=== PATIENT | female | born 2000 | race Caucasian/White ===

== ENCOUNTER 2025-04-24 22:14 | Emergency (ER) | payer OTHER, SELFPAY ==
--- NOTE | ~2025-04-24 | US_ITS ---
US OB <=14 wk fetus w TV Ordering provider: Lon Beckford History: . r/o ectopic . Comparison: None. Technique: Transabdominal and endovaginal ultrasound of the pelvis (Doppler ultrasound interrogation techniques used as needed for this exam.) FINDINGS: CERVIX: Normal. UTERUS: Measures 9.7x 5.6x 6.9 cm in length which is within normal limits and is anteverted. No myom etrial masses. ENDOMETRIUM: Thickened endometrium is noted with no pole or gestational sac. CUL DE SAC: Trace free fluid. RIGHT OVARY: Not visualized. LEFT OVARY: Not visualized. ADNEXA: Normal. No mass. Thickened wall of the urinary bladder. IMPRESSION: Thickened endometrium with no intrauterine gestational sac. No definite adnexal masses seen. Trace of free fluid. Early is possible. Ectopic cannot be excluded. Clinical correlation and follow-up with correlation with the beta units is advised. Reviewed, dictated and finalized at location A. IMPRESSION: Thickened endometrium with no intrauterine gestational sac. No definite adnexal masses seen. Trace of free fluid. Early is possible. Ectopic cannot be excluded. Clinical cor relation and follow-up with correlation with the beta units is advised.
[2025-04-24 22:16] VITALS: BP 115/81; PULSE 78; RESP 18; TEMP 37.3; O2SAT 100
[2025-04-24 22:33] LABS: Basophils Absolute Auto 0.1 K/mm3 (0.0-0.1); Basophils Percent Auto 0.7 % (0.2-1.2); Eosinophils Absolute Auto 0.2 K/mm3 (0-0.3); Hemoglobin 12.6 g/dL (12.0-15.0); Immature Granulocyte Absolute 0.02 K/mm3 (0.00-0.031); Immature Granulocyte Percent A 0.2 % (0-0.5); Lymphocytes Absolute Auto 2.27 K/mm3 (0.9-3.2); Lymphocytes Percent Auto 25.1 % (18.3-44.2); Mean Corpuscular HGB Conc 31.5 g/dl (32-36); Mean Corpuscular Hemoglobin 25.8 pg (26-34); Mean Platelet Volume 8.7 fl (7.4-10.4); Monocytes Percent Auto 10.5 % (2.6-8.5); Neutrophils Absolute Auto 5.6 K/mm3 (1.3-6.7); Neutrophils Percent Auto 61.5 % (45.5-73.1); Platelet Count Result 377 k/mm3 (150-375); Red Blood Count 4.88 M/mm3 (4.2-5.4); Red Cell Distribution Width 13.7 % (11.5-14.5); White Blood Count 9.1 K/mm3 (4.5-10.0)
[2025-04-24 22:42] LABS: Alanine Aminotransferase 15 U/L (6-35); Albumin Level 4.5 g/dL (3.5-5.1); Alkaline Phosphatase 46 U/L (38-126); Anion Gap 9 mmol/L (4-12); Aspartate Amino Transferase 26 U/L (14-36); Bilirubin,Total 0.2 mg/dL (0.2-1.3); Blood Urea Nitrogen 10 mg/dL (7-17); Calcium 9.1 mg/dL (8.4-10.2); Carbon Dioxide 24 mmol/L (22-30); Chloride 104 mmol/L (98-107); Estimated CRCL calculation 108 ml/min; Estimated Glomerular Filt Rate > 60; Glucose 98 mg/dL (65-110); Potassium 3.6 mmol/L (3.4-5.0); Sodium 137 mmol/L (137-145)
[2025-04-24 22:53] LABS: INR 0.9; Prothrombin Time 12.3 Seconds (11.1-14.7)
[2025-04-24 22:54] LABS: Partial Thromboplastin Time 29.3 Seconds (22.3-36.8)
--- NOTE | 2025-04-25 01:25 | ED_ITS ---
HPI - General Chief complaint: EFFICIENCY MINER BLASTING Stated complaint: Max 10wks preg-bleeding tonight with cramping Time Seen by Provider: 04/25/25 01:01 History of Present Illness HPI Narrative: 25-year-old female that is presenting to the emergency department for evaluation of vaginal bleeding in the setting of . She is not sure exactly how far along her she is but she estimates less than 10 weeks. She is tablets with an OBGYN Dr. Lovelace several weeks ago and has a schedule ultrasound next week to evaluate and see how her 1st trimester is going. This is her 1st . She was otherwise in her normal state of health but for the last day she has been having what feels like a menstrual cycle with passage of blood and blood clots. She is not hemorrhaging or soaking through pads significantly but states that is consistent with her normal cycle. Endorses mild cramping pain similar to her menses. Came to the ER for evaluation as she is not sure if this is a complication of and was not able to get in contact with her OBGYN. No fever, chills, back pain, upper abdominal pain, chest pain, shortness a breath. No allergies. States that she has a history of iron deficiency anemia that she takes supplements for. No previous pregnancies. Related Data Allergies Allergy/AdvReac Type Severity Reaction Status Date / Time shrimp Allergy Intermediate Vomiting Verified 04/24/25 22:16 Review of Systems 2 Review of Systems: As reviewed above in HPI [facility] Past Medical History Medical History Anemia Family History Family History Grandparent Family history of bipolar disorder Heart disease Mother Hypertension Social History Social History Smoking status: Never smoker Alcohol intake: never Substance use: former Substance use type: marijuana Do You Feel Safe in your Home?: Yes Lack of Transportation: No Lack of Food: Sometimes True Current Housing: I Have Housing Concerned About Future Housing: No Difficulty Paying Gas/Electric Bills: No Difficulty Paying for Meds: No Currently Unemployed: No Education: Associate Degree Difficulty w/ Childcare or Family Care: YES Living arrangements: with family Occupation/Education: occupation Gender identity (if verbalized by the patient): Female Sexual Orientation (if Verbalized by the Patient): Straight or Heterosexual Exam 2 Narrative: GENERAL: [Well-appearing, well-nourished, and in no acute distress.] HEAD: [Normocephalic, atraumatic.] EYES: [PERRLA and EOMI.] ENT: Nares clear, no rhinorrhea or epistaxis. Mucous membranes moist. NECK: Supple. CHEST: [Clear to auscultation. No respiratory distress.] HEART: [Regular rate and rhythm]. No murmur heard. [Normal peripheral pulses.] ABDOMEN: [Soft, nondistended], [nontender], [No rigidity or guarding] EXTREMITIES: Normal range of motion. [No edema.] SKIN: Warm, dry, no rash. NEURO: [No focal deficits]. Alert and oriented [x3.] PSYCH: [Normal mood and affect.] Course Vital Signs Vital signs: Vital Signs Temperature 37.3 C 04/24/25 22:16 Pulse Rate 78 04/24/25 22:16 Respiratory Rate 18 04/24/25 22:16 Blood Pressure 115/81 04/24/25 22:16 Pulse Oximetry 100 04/24/25 22:16 Oxygen Delivery Room Air 04/24/25 22:16 Temperature 37.3 C 04/24/25 22:16 Pulse Rate 78 04/24/25 22:16 Respiratory Rate 18 04/24/25 22:16 Blood Pressure 115/81 04/24/25 22:16 Pulse Oximetry 100 04/24/25 22:16 Oxygen Delivery Room Air 04/24/25 22:16 MDM - OB/Uterine Contractions MDM Narrative Medical decision making narrative: 25-year-old otherwise healthy female presenting to the emergency department for vaginal bleeding in the setting of first-trimester . Patient has not had any confirmatory imaging done of the and has a scheduled outpatient ultrasound next week with her OBGYN Dr. Lovelace. Patient states this is her 1st . No previous medical problems aside from iron deficiency anemia that she takes supplements for. She is otherwise well-appearing, not any acute distress, reassuring examination. She states that she is not hemorrhaging significantly but does note clot passage and some mild abdominal cramping consistent with her normal menses. Considerations at this time are for normal vaginal bleeding in 1st trimester , threatened or complete miscarriage, ectopic . She is hemodynamically stable with reassuring examination is so suspicion for acute intra-abdominal process and ectopic is low. Ultrasound was ordered both transabdominal and transvaginal as well as quantitative beta HCG, PT, PTT, CBC, CMP. Patient's laboratory studies are reassuring without any acute concerns. She is no anemia, no leukocytosis or abnormal platelets. Normal coagulation panel. Normal electrolytes, normal renal and hepatic function panel. Normal glucose. Beta hCG came back at 2600. Ultrasound report came back with a thickened endometrium but no visualized well IUP and no adnexal masses. Trace free fluid. Suspicion presently is for early versus ectopic versus miscarriage. Recommendations for close follow-up. I discussed this with the patient as well as my plan of care which will be for repeat beta hCG and ultrasound in 48 hours time to rule out ectopic and to get further delineation of her status. Patient will contact her OBGYN Dr. Lovelace in the morning to get this done on outpatient basis and if not able she will return to the emergency department for the studies in 48 hours time which patient and family member at bedside verbalized understanding. I discussed strict return precautions otherwise including developing worsening abdominal pain, developing worsening bleeding, fevers, lightheadedness, syncope, or any other concerns and she should come back sooner. Patient verbalized expressing understanding of these instructions and safely discharged at this time. Medical Records Attestation: I reviewed the patient's medical records. Lab Data Attestation: I reviewed the patient's lab results. 04/24/25 22:27 04/24/25 22:27 Labs: Lab Results 04/24/25 Range/Units 22:27 WBC 9.1 (4.5-10.0) K/mm3 RBC 4.88 (4.2-5.4) M/mm3 Hgb 12.6 (12.0-15.0) g/dL Hct 40.0 (37.0-47.0) % MCV 82.0 (80-100) fl MCH 25.8 L (26-34) pg MCHC 31.5 L (32-36) g/dl RDW 13.7 (11.5-14.5) % Plt Count 377 H (150-375) k/mm3 MPV 8.7 (7.4-10.4) fl Immature Gran % (Auto) 0.2 (0-0.5) % Neut % (Auto) 61.5 (45.5-73.1) % Lymph % (Auto) 25.1 (18.3-44.2) % [place] % (Auto) 10.5 H (2.6-8.5) % Eos % (Auto) 2.0 (0-4.4) % Baso % (Auto) 0.7 (0.2-1.2) % Lymph # (Auto) 2.27 (0.9-3.2) K/mm3 [place] # (Auto) 1.0 H (0.1-0.6) K/mm3 Eos # (Auto) 0.2 (0-0.3) K/mm3 Baso # (Auto) 0.1 (0.0-0.1) K/mm3 Abs Immat Gran (auto) 0.02 (0.00-0.031) K/mm3 Absolute Neuts (auto) 5.6 (1.3-6.7) K/mm3 Absolute Nucleated RBC 0.000 (0.0-0.012) K/mm3 Nucleated RBC % 0.0 (0.0-0.2) % PT 12.3 (11.1-14.7) Seconds INR 0.9 APTT 29.3 (22.3-36.8) Seconds Sodium 137 (137-145) mmol/L Potassium 3.6 (3.4-5.0) mmol/L Chloride 104 (98-107) mmol/L Carbon Dioxide 24 (22-30) mmol/L Anion Gap 9 (4-12) mmol/L BUN 10 (7-17) mg/dL Creatinine 0.60 L (0.7-1.0) mg/dL Estim Creat Clear Calc 108 ml/min Estimated GFR > 60 (59 - ) Glucose 98 (65-110) mg/dL Calcium 9.1 (8.4-10.2) mg/dL Total Bilirubin 0.2 (0.2-1.3) mg/dL AST 26 (14-36) U/L ALT 15 (6-35) U/L Alkaline Phosphatase 46 (38-126) U/L Total Protein 7.0 (6.3-8.2) g/dL Albumin 4.5 (3.5-5.1) g/dL Beta HCG, Quant 2600.00 mIU/ML Blood Type A Positive Antibody Screen Negative Screen TNP Baby's Blood Type Not Reportable Baby's NAASTASIA Not Reportable Doses of RhIg Required 0 Imaging Data Attestation: I personally reviewed and interpreted this imaging study as follows: My impression: Impressions Obstetrics Ultrasound 04/24/25 23:47 IMPRESSION: Thickened endometrium with no intrauterine gestational sac. No definite adnexal masses seen. Trace of free fluid. Early is possible. Ectopic cannot be excluded. Clinical correlation and follow-up with correlation with the beta units is advised. Discharge Plan Discharge Clinical Impression: of unknown anatomic location, Vaginal bleeding affecting early Patient Disposition: Home Condition: Stable Instructions: Antibiotic Form, Ectopic (DC), Threatened Miscarriage (ED) Additional Instructions: Your ultrasound report does not show a intrauterine gestational sac however your status might be too early to tell verses having a potential threatened or complete miscarriage versus an ectopic . Your laboratory studies are all reassuring however and your vital signs are normal. In 48 hours we need you to have a repeat beta hCG test as well as ultrasound/evaluation with OBGYN. Contact Dr. Lovelace's office in the morning to get this scheduled and if not able to return to the emergency department in 48 hours time or even sooner if you experiencing significant hemorrhage, worsening abdominal pain, fevers, syncope, passing out or any other concerns. Patient Language: Salvadorean Prescriptions: No Action mupirocin 2 % ointment 1 applic topical BID Qty: 22 3RF metoclopramide HCl [Reglan] 5 mg tablet 5 mg PO Q6H PRN (Reason: nausea and vomiting) Qty: 30 1RF ferrous sulfate 325 mg (65 mg iron) tablet 325 mg PO BID Qty: 60 12RF Follow-up/Referrals: Khoa Lovelace MD [Physician] - 2 Days (f/u ER visit, miscarriage vs ectopic. close follow up) Arnold Mills DO [Primary Care Provider] - Time of Disposition: 01:34
[2025-04-25 01:42] VITALS: BP 111/79; PULSE 87; RESP 18; O2SAT 99
== END 2025-04-25 01:44 | disposition home or self-care (01) ==
PROVIDERS: Emergency Provider Student in an Organized Health Care Education/Training Program; PCP Internal Medicine
DX: O26.851 Spotting complicating pregnancy, first trimester (principal); Z3A.00 Weeks of gestation of pregnancy not specified
CPT/HCPCS: 36415; 76801; 76817; 80053; 84702; 85025; 85461; 85610; 85730; 86850; 86900; 86901; 99284

== ENCOUNTER 2025-04-26 10:47 | Outpatient (CLI) | payer OTHER, SELFPAY ==
--- NOTE | ~2025-04-26 | US_ITS ---
EXAMINATION: US OB <=14 wk fetus w TV DATE: 04/26/2025 13:57 CDT INDICATION: Bleeding in early COMPARISON: 04/24/2025, with quantitative beta hCG at that time measuring 2600. No serial quantitative beta hCG is available at the time of this dictation. TECHNIQUE: Real-time transabdominal obstetric ultrasound. FINDINGS: 1 para 0 Last menstrual period is given as 02/21/2025 Estimated date of delivery by last menstrual period is 11/28/2025. The uterus measures 8.4 x 4.4 x 4.3 cm. No gestational sac is identified within the uterus. The endometrium measures 8.6 mm, and demonstrates color flow The right ovary is unremarkable in echogenicity and size measuring 2.7 x 2.0 x 1.7 cm. The left ovary is unremarkable in echogenicity and size measuring 2.7 x 1.9 x 1.7 cm. No free fluid is identified within the pelvis. IMPRESSION: No intrauterine gestation is identified on the current examination. The ovaries and adnexa are unremarkable, for which an ectopic within the ovaries or adnexa is not suspected. No free fluid within the pelvis. Please correlate these findings with the quantitative serum beta hCG, which was not available at time of this dictation Reviewed, dictated and finalized at location A.
== END 2025-04-26 10:48 | disposition home or self-care (01) ==
PROVIDERS: PCP Student in an Organized Health Care Education/Training Program; Visit Provider Student in an Organized Health Care Education/Training Program
DX: O20.9 Hemorrhage in early pregnancy, unspecified (principal); Z3A.00 Weeks of gestation of pregnancy not specified
CPT/HCPCS: 76801; 76817

== ENCOUNTER 2025-04-29 16:34 | Outpatient (CLI) | payer OTHER, SELFPAY ==
[2025-04-29 17:48] LABS: Beta HCG Quantitative 258.47 mIU/ML
== END 2025-04-29 16:35 | disposition home or self-care (01) ==
LOC: ANHLAB 16:35
PROVIDERS: PCP Student in an Organized Health Care Education/Training Program; Visit Provider Student in an Organized Health Care Education/Training Program
DX: N91.2 Amenorrhea, unspecified (principal)
CPT/HCPCS: 36415; 84702